=== PATIENT | male | born 1985 | race Caucasian/White ===

== ENCOUNTER 2024-06-14 17:43 | Emergency (ER) | payer OTHER, BC ==
[~2024-06-14] VITALS: Ht 180.3 cm; Wt 114.3 kg
[~2024-06-14 17:43] MED LIST: KEFLEX500 MG PO
[2024-06-14] MEDS ORDERED: CYCLOBENZAPRINE5 M3 PO (19:51)
[2024-06-14] MEDS ORDERED: methylPREDNISolone sod succ 125 MG VIAL IM ONE (19:55)
[2024-06-14] MEDS ORDERED: Ketorolac Tromethamine 30 MG/ML VIAL IM ONE (19:55)
== END 2024-06-14 20:02 | disposition home or self-care (01) ==
LOC: ED
DX: S39.012A Strain of muscle, fascia and tendon of lower back, initial encounter (principal); Z91.040 Latex allergy status; X50.0XXA Overexertion from strenuous movement or load, initial encounter; Y93.89 Activity, other specified; Y92.89 Other specified places as the place of occurrence of the external cause; Y99.0 Civilian activity done for income or pay

== ENCOUNTER → 2024-06-16 | Outpatient (CLI) | payer OTHER, BC ==
[~2024-06-16] MED LIST changes: +CYCLOBENZAPRINE5 M3 PO
== END | disposition home or self-care (01) ==
LOC: RAD 17:32
PROVIDERS: ATTEND Nurse Practitioner Family
DX: M54.41 Lumbago with sciatica, right side (principal)